=== PATIENT | male | born 1960 | race African-American/Black ===

== ENCOUNTER 2024-06-01 14:01 | Emergency (ER) | payer SELFPAY ==
[~2024-06-01] VITALS: Ht 172.7 cm; Wt 64.0 kg
[2024-06-01 14:06] VITALS: TEMP 98.3; O2SAT 100
[2024-06-01 14:31] LABS: CLARITY URINE CLEAR (CLEAR); COLOR URINE YELLOW (YELLOW); GLUCOSE URINE NEGATIVE (NEGATIVE); KETONES URINE NEGATIVE (NEGATIVE); LEUKOCYTE ESTERASE URINE NEGATIVE (NEGATIVE); NITRITE URINE NEGATIVE (NEGATIVE); OCCULT BLOOD URINE NEGATIVE (NEGATIVE); PH URINE 6.5 (4.5-8.0); PROTEIN URINE 1+ (NEGATIVE); SPECIFIC GRAVITY URINE 1.018 (1.005-1.030)
[2024-06-01 15:01] LABS: BACTERIA URINE NONE SEEN; RBC URINE 0-2 /hpf (0-2); SQUAMOUS EPITHELIAL CELL URINE RARE /lpf (RARE/1+); WBC URINE 0-2 /hpf (0-2); YEAST URINE NONE SEEN
[2024-06-01 15:06] LABS: BASOPHILS % 0.6 % (0.0-2.0); EOSINOPHILS % 1.2 % (0.0-5.0); HEMATOCRIT. 44.7 % (42.0-52.0); HEMOGLOBIN. 14.9 g/dL (14.0-18.0); LYMPHOCYTES % 33.6 % (20.0-50.0); MEAN CORPUSCULAR HEMOGLOBIN 32.1 pg (28.0-32.0); MEAN CORPUSCULAR HGB CONC 33.4 g/dL (31.0-37.0); MEAN CORPUSCULAR VOLUME 96.1 fL (80.0-94.0); MEAN PLATELET VOLUME 9.3 fl (7.4-10.4); MONOCYTES % 7.9 % (2.0-8.0); NEUTROPHILS % 56.7 % (40.0-76.0); PLATELET 201 x1000/uL (130-400); RED BLOOD CELL COUNT 4.65 mill/uL (4.7-6.1); RED CELL DISTRIBUTION WIDTH 15.7 % (11.6-14.6); WHITE BLOOD COUNT 5.9 x1000/uL (4.5-11.0)
[2024-06-01 15:12] LABS: CARBON DIOXIDE 29 mEq/L (21-32); CHLORIDE 107 mEq/L (98-107); POTASSIUM 4.3 mEq/L (3.5-5.1); SODIUM 140 mEq/L (136-145)
[2024-06-01 15:13] LABS: CALCIUM 9.5 mg/dL (8.7-10.4)
[2024-06-01 15:18] LABS: CREATININE 1.2 mg/dL (0.6-1.3); GLUCOSE 104 mg/dL (70-105); UREA NITROGEN BLOOD 11 mg/dL (9-23)
[2024-06-01 15:21] LABS: TROPONIN I HIGH SENSITIVITY < 4 ng/L (3.0-53)
[2024-06-01] MEDS: MECLIZINE 25MG TABLET PO ONE (15:56)
[2024-06-01] MEDS: ACETAMINOPHEN 500MG TABLET PO ONE (15:56)
[2024-06-01] MEDS: IOHEXOL-350 100 ML BOTTLE ONE (17:41)
[2024-06-01 18:15] VITALS: BP 193/95; PULSE 62; RESP 16; O2SAT 97
[2024-06-01] MEDS ORDERED: IOHEXOL-350 100 ML BOTTLE ONE (23:35)
== END 2024-06-01 18:18 | disposition home or self-care (01) ==
LOC: ER 14:55
DX: R42 Dizziness and giddiness (principal); M54.50 Low back pain, unspecified
CPT/HCPCS: 99285; 70496; 80048; 81003; 85025; 84484; 36415; 70498; 93005; 70450; Q9967; J8597